=== PATIENT | male | born 1975 | race Caucasian/White ===

== ENCOUNTER 2017-09-22 13:52 | Emergency (ER) | payer OTHER ==
[2017-09-22 13:57] VITALS: BMI 24.2
[2017-09-22 14:02] VITALS: TEMP 97.6
[2017-09-22 14:27] VITALS: RESP 18; O2SAT 98
--- NOTE | 2017-09-22 14:28 | ED PDOC ---
Arrival/HPI - General Chief Complaint: Lower Extremity Problem/Injury Time Seen by Provider: 09/22/17 14:25 Historian: Patient - History of Present Illness Narrative History of Present Illness (Text): 09/22/17 14:25 41 y/o male, no significant pmh, nkda, c/o rt. ankle pain x 2 hours Ankle pain , inversion injury from walking down, no fall, no numbness or tingling, no calf or thigh pain, no rash, no other medical or psychological complaints. Past Medical History - Provider Review Nursing Documentation Reviewed: Yes - Cardiac Hx Cardiac Disorders: No - Pulmonary Hx Respiratory Disorders: No - Neurological Hx Neurological Disorder: No - HEENT Hx HEENT Disorder: No - Renal Hx Renal Disorder: No - Endocrine/Metabolic Hx Endocrine Disorders: No - Hematological/Oncological Hx Blood Disorders: No - Integumentary Hx Dermatological Disorder: No - Musculoskeletal/Rheumatological Hx Musculoskeletal Disorders: No - Gastrointestinal Hx Gastrointestinal Disorders: No - Genitourinary/Gynecological Hx Genitourinary Disorders: No - Psychiatric Hx Psychophysiologic Disorder: No Hx Substance Use: No Family/Social History - Physician Review Nursing Documentation Reviewed: Yes Family/Social History: Unknown Family HX Smoking Status: Never Smoked Hx Alcohol Use: No Hx Substance Use: No Allergies/Home Meds Allergies/Adverse Reactions: Allergies No Known Allergies Allergy (Verified 09/22/17 13:56) Review of Systems - Review of Systems Constitutional: absent: Fatigue, Fevers Eyes: absent: Vision Changes ENT: absent: Hearing Changes Respiratory: absent: SOB, Cough Cardiovascular: absent: Chest Pain Gastrointestinal: absent: Abdominal Pain, Nausea, Vomiting Musculoskeletal: Arthralgias. absent: Back Pain, Neck Pain, Joint Swelling, Myalgias Skin: absent: Rash, Pruritis Neurological: absent: Headache, Dizziness Psychiatric: absent: Anxiety, Depression Physical Exam Vital Signs Reviewed: Yes Vital Signs Temp Pulse Resp BP Pulse Ox 09/22/17 15:04 89 18 133/79 98 09/22/17 14:16 96 H 18 135/83 98 09/22/17 13:58 97.6 F 96 H 20 135/83 96 Temperature: Afebrile Blood Pressure: Normal Pulse: Regular Respiratory Rate: Normal Appearance: Positive for: Well-Appearing, Non-Toxic, Comfortable Pain Distress: Mild Mental Status: Positive for: Alert and Oriented X 3 - Systems Exam Head: Present: Atraumatic, Normocephalic Pupils: Present: PERRL Extroacular Muscles: Present: EOMI Conjunctiva: Present: Normal Mouth: Present: Moist Mucous Membranes Neck: Present: Normal Range of Motion Respiratory/Chest: Present: Clear to Auscultation, Good Air Exchange. No: Respiratory Distress, Accessory Muscle Use Cardiovascular: Present: Regular Rate and Rhythm, Normal S1, S2. No: Murmurs Abdomen: No: Tenderness, Distention, Peritoneal Signs Back: Present: Normal Inspection Upper Extremity: Present: Normal Inspection. No: Cyanosis, Edema Lower Extremity: Present: Normal Inspection, Other (Rt. ankle: +ttp on lateral malleolus, no swelling, negative tristan and velasquez signs, no lateral foot tenderness, FROM without limitation, sensation intact, motor 5/5, ). No: Edema Neurological: Present: GCS=15, CN II-XII Intact, Speech Normal Skin: Present: Warm, Dry, Normal Color. No: Rashes Psychiatric: Present: Alert, Oriented x 3, Normal Insight, Normal Concentration Medical Decision Making ED Course and Treatment: 09/22/17 14:34 -xray -motrin 09/22/17 14:56 -Xray show no fracture or dislocation -Mc wrap applied with neurovascular intact, refused cane or crutches, walking with normal gait and posture. -Discharge home with naproxen, mc wrap, follow up with your own pmd and orthopedic within 2 days, return to the ER for any new or worsening signs or symptoms. 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 Disposition/Present on Arrival - Present on Arrival Any Indicators Present on Arrival: No History of DVT/PE: No History of Uncontrolled Diabetes: No Urinary Catheter: No History of Decub. Ulcer: No History Surgical Site Infection Following: None - Disposition Have Diagnosis and Disposition been Completed?: Yes Diagnosis: Ankle injury, Ankle pain Disposition: HOME/ ROUTINE Disposition Time: 14:35 Patient Plan: Discharge Condition: GOOD Additional Instructions: -Discharge home with naproxen, mc wrap, follow up with your own pmd and orthopedic within 2 days, return to the ER for any new or worsening signs or symptoms. Prescriptions: Naproxen 500 mg PO BID PRN #20 tablet PRN Reason: Other Referrals: Stef Alves MD [Medical Doctor] - Follow up with primary Forms: WORK NOTE
[2017-09-22 15:04] VITALS: BP 133/79; PULSE 89
--- NOTE | 2017-09-22 15:49 | RAD ---
PROCEDURE: Right Ankle Radiographs. HISTORY: rt. ankle inversion injury and pain COMPARISON: None FINDINGS: BONES: Normal. No fracture. JOINTS: Normal. No osteoarthritis. Ankle mortise maintained. Talar dome intact SOFT TISSUES: Normal. OTHER FINDINGS: None. IMPRESSION: Normal right ankle radiographs.
== END 2017-09-22 15:02 | disposition home or self-care (01) ==
LOC: ED 13:52
DX: S99.911A Unspecified injury of right ankle, initial encounter (principal); X58.XXXA Exposure to other specified factors, initial encounter; M25.571 Pain in right ankle and joints of right foot